=== PATIENT | male | born 1970 | race Caucasian/White ===

== ENCOUNTER 2018-06-19 13:47 | Emergency (ER) | payer OTHER ==
--- NOTE | 2018-06-19 14:44 | ER Report ---
History and Physical Time Seen By MD: 14:25 Hx. of Stated Complaint: PT FELL WHILE HIKING HIS DOG LAST FRIDAY. WOUND TO RIGHT KNEE HPI/ROS CHIEF COMPLAINT: Knee pain, swelling, drainage HISTORY OF PRESENT ILLNESS: 48-year-old male last Friday, 6 days ago, was running down a hillside while hiking, when he slipped, striking his right knee against a rock. Patient suffered laceration, with skin flap. He has been treating at home with Neosporin. He is noted continued drainage from the right knee. Patient also had multiple abrasions the right upper arm which are healing well. He has no other bony pain or tenderness. He has no headache, loss of consciousness, fever. REVIEW OF SYSTEMS: Constitutional: No fever, no chills. Eyes: no blurred vision ENT: No sore throat. Cardiovascular: No chest pain, no palpitations. Respiratory: No cough, no shortness of breath. Gastrointestinal: no vomiting Genitourinary: No hematuria. Musculoskeletal: No back pain. Skin: No rashes; skin flap to anterior knee and injury as above Neurological: No headache. Remainder of the 14 system rev: Yes Allergies: Coded Allergies: No Known Drug Allergies (Unverified , 06/19/18) Reviewed Nurses Notes: Yes Constitutional Vital Sign - Last 24 Hours 06/19/18 13:55 Temp 97.4 Pulse 73 Resp 16 B/P (MAP) 153/88 Pulse Ox 95 O2 Delivery Room Air Physical Exam General Appearance: The patient is alert, has no immediate need for airway protection and no signs of toxicity. Eyes: Pupils equal and round no pallor or injection. ENT, Mouth: Mucous membranes are moist. Respiratory: no retractions, no respiratory distress Cardiovascular: Regular rate and rhythm. pulses = in lower ext Neurological: alert, oriented, manzo Skin: pt has 1x1 cm skin flap ant r knee with moderate serosanguinous fluid extrusion Musculoskeletal: Extremities are nontender, nonswollen and have full range of motion. DIFFERENTIAL DIAGNOSIS: After history and physical exam differential diagnosis was considered for fracture, dislocation, joint involvement of laceration, or other emergent etiology Medical Decision Making ED Course/Re-evaluation ED Course 48-year-old male presents 1 week after fall onto right knee with knee laceration, continued open laceration with drainage of serosanguineous fluid. Due to concern for potential joint involvement, I obtained x-ray which is normal, and performed saline lead test. This was negative. Thorough wound care was performed. I debrided; will leave remainder of laceration open to heal by secondary intention. I do not see tendon rupture when evaluated through full range of motion. Patient ambulatory without difficulty. Discharge with strict return precautions. Procedure I performed saline load test. After sterile preparation, and verbal consent, I injected 5 mL's of 1% lidocaine in the right medial superior knee joint. Subsequently, I injected 155 mL's of sterile normal saline. There was no effusion from the anterior laceration. I withdrew 100 mL's of normal saline. Patient tolerated well with no competitions. I debrided anterior laceration. I explored to base and notes no tendon rupture. There is no purulent drainage. Irrigated thoroughly with 1 L normal saline. Administer bacitracin and sterilely wrapped. Decision to Disposition Date: Jun 19, 2018 Decision to Disposition Time: 15:52 Depart Departure Latest Vital Signs Vital Signs Date Time Temp Pulse Resp B/P (MAP) Pulse Ox O2 Delivery O2 Flow Rate FiO2 06/19/18 13:55 97.4 73 16 153/88 95 Room Air Impression: Primary Impression: Knee laceration Condition: Improved Disposition: HOME OR SELF-CARE Patient Instructions: Laceration Without Closure (ED) Additional Instructions: As we discussed, continued to place topical antibiotics at least twice daily, change bandages as needed. This will continue to drain until it completely heals, and will ultimately scar. Please follow up or return immediately if you have difficulty walking, increased pain or swelling, fevers, or any concerns. Problem Qualifiers Primary Impression: Knee laceration Encounter type: initial encounter Laterality: right Qualified Codes: S81.011A - Laceration without foreign body, right knee, initial encounter ZULMA SHAIKH MD Jun 19, 2018 14:44
--- NOTE | 2018-06-19 15:41 | RADIOLOGY IMAGING REPORT ---
FACILITY: [facility] [place] PATIENT NAME: Ronald Ford : 1970 MR: [id number] V: [id number] EXAM DATE: ORDERING PHYSICIAN: ZULMA SHAIKH TECHNOLOGIST: Location: [facility] Patient: Ronald Ford : 1970 Visit/Account:[id number] Date of Sevice: 06/19/2018 KNEE 3 VIEW RIGHT Indication: Right knee pain. Comparison: None available. Findings: 3 views of the right knee. Anterior soft tissue swelling. No evidence of acute fracture, dislocation, or radiopaque foreign body . Normal mineralization, joint spaces, and alignment. Impression: No acute osseous abnormality of the right knee. Report Dictated By: Roel Carter MD at 06/19/2018 3:32 PM Report E-Signed By: Roel Carter MD at 06/19/2018 3:33 PM WSN:[id number]
[2018-06-19 15:43] VITALS: BP 145/90
== END 2018-06-19 16:09 | disposition home or self-care (01) ==
LOC: ER 13:51
DX: S81.011A Laceration without foreign body, right knee, initial encounter (principal); W18.39XA Other fall on same level, initial encounter
CPT/HCPCS: 97597; 99284